=== PATIENT | female | born 1960 | race Caucasian/White ===

== ENCOUNTER 2022-03-28 11:06 | Outpatient (CLI) | payer BC | END 2022-03-28 11:07 | disposition home or self-care (01) | LOC: CSHMAMMO 11:06 | PROVIDERS: ATTEND Family Medicine | DX: Z12.31 Encounter for screening mammogram for malignant neoplasm of breast (principal); Z80.3 Family history of malignant neoplasm of breast | CPT/HCPCS: 77063; 77067 ==

== ENCOUNTER 2023-05-29 10:41 | Outpatient (CLI) | payer BC | END 2023-05-29 10:42 | disposition home or self-care (01) | LOC: CSHMAMMO 10:41 | PROVIDERS: ATTEND Family Medicine | DX: Z12.31 Encounter for screening mammogram for malignant neoplasm of breast (principal); Z80.3 Family history of malignant neoplasm of breast | CPT/HCPCS: 77063; 77067 ==

== ENCOUNTER 2024-08-12 10:42 | Outpatient (CLI) | payer BC | END 2024-08-12 10:43 | disposition home or self-care (01) | LOC: CSHMAMMO 10:42 | PROVIDERS: ATTEND Family Medicine | DX: Z12.31 Encounter for screening mammogram for malignant neoplasm of breast (principal); Z80.3 Family history of malignant neoplasm of breast | CPT/HCPCS: 77063; 77067 ==

== ENCOUNTER 2025-09-06 11:52 | Outpatient (CLI) | payer BC | END 2025-09-06 11:53 | disposition home or self-care (01) | LOC: CSHMAMMO 11:52 | PROVIDERS: ATTEND Family Medicine | DX: Z12.31 Encounter for screening mammogram for malignant neoplasm of breast (principal); Z80.3 Family history of malignant neoplasm of breast | CPT/HCPCS: 77063; 77067 ==